=== PATIENT | male | born 1930 | race Caucasian/White ===

== ENCOUNTER 2017-03-03 11:22 | Emergency (ER) | payer MEDICARE, BC ==
[2017-03-03 11:31] VITALS: BP 152/83
--- NOTE | 2017-03-03 12:15 | EDM.PDOC ---
ED HPI GENERAL MEDICAL PROBLEM - General Chief Complaint: Gastrointestinal Problem Stated Complaint: CONSTIPATION Time Seen by Provider: 03/03/17 11:42 Source of Information: Reports: Patient, Significant Other History Limitations: Reports: Physical Impairment (patient has parkinsons) - History of Present Illness INITIAL COMMENTS - FREE TEXT/NARRATIVE: 86-year-old male presents for evaluation treatment of constipation. Patient reports that he has not had a bowel movement in the last 4 days. He reports colicky abdominal cramping on the left side, present for the last 2 days. He reports that he had a small bowel movement yesterday but has otherwise not had a large bowel movement last 4 days. He reports the urge to defecate. He also reports bloating and some nausea. Patient denies any vomiting, melena, hematochezia, dizziness, lightheadedness, dysuria or hematuria. Patient states he has not been passing much gas. Patient takes MiraLAX periodically but has not daily. No previous surgeries to his abdomen. Patient has Parkinson's and frequent struggles with constipation. - Related Data Allergies Allergy/AdvReac Type Severity Reaction Status Date / Time No Known Allergies Allergy Verified 03/03/17 11:31 Home Meds: Home Meds Carbidopa/Levodopa [Sinemet 25-100 mg] 2 tab PO TIDM 03/03/17 [History] Levothyroxine 25 mcg PO ACBREAKFAST 03/03/17 [History] Magnesium Citrate [Citroma] 296 ml PO ASDIRECTED #1 bottle 03/03/17 [Rx] Simvastatin [Zocor] 20 mg PO BEDTIME 03/03/17 [History] Past Medical History Cardiovascular History: Reports: High Cholesterol Gastrointestinal History: Reports: Chronic Constipation Neurological History: Reports: Parkinson's Endocrine/Metabolic History: Reports: Hypothyroidism Social & Family History - Tobacco Use Smoking Status *Q: Never Smoker Second Hand Smoke Exposure: No - Caffeine Use Caffeine Use: Reports: Coffee - Recreational Drug Use Recreational Drug Use: No ED ROS GENERAL - Review of Systems Review Of Systems: See Below Cardiovascular: Denies: Lightheadedness GI/Abdominal: Reports: Abdominal Pain (left sided abd cramping), Constipation, Nausea. Denies: Hematochezia, Melena, Vomiting : Reports: No Symptoms. Denies: Dysuria Neurological: Denies: Dizziness ED EXAM, GI/ABD - Physical Exam Exam: See Below Exam Limited By: Physical Impairment (patient has parkinsons) General Appearance: Alert, WD/WN, No Apparent Distress Respiratory/Chest: No Respiratory Distress, Lungs Clear, Normal Breath Sounds Cardiovascular: Normal Peripheral Pulses, Regular Rate, Rhythm, No Murmur GI/Abdominal: Normal Bowel Sounds, Soft, Non-Tender Extremities: Normal Inspection, Limited Range of Motion (ridgid) Neurological: Alert, Oriented, Slow to Respond, Abnormal Gait (shuffling) Psychiatric: Normal Affect, Normal Mood Skin Exam: Warm, Dry, Normal Color Course - Vital Signs Last Recorded V/S: Last Vital Signs Temp 36.4 C 03/03/17 11:29 Pulse 60 03/03/17 11:29 Resp 19 03/03/17 11:29 BP 152/83 H 03/03/17 11:29 Pulse Ox 98 03/03/17 11:29 - Orders/Labs/Meds Orders: Active Orders 24 hr Category Date Time Status Enema [RC] ASDIRECTED Care 03/03/17 12:54 Active Enema [RC] ASDIRECTED Care 03/03/17 15:07 Active - Radiology Interpretation Free Text/Narrative:: flat and upright abdominal xray shows extensive constipation to the left side. No air fluid lines present. Reviewed by myself and Dr. Price. - Re-Assessments/Exams Free Text/Narrative Re-Assessment/Exam: 03/03/17 12:59 I reviewed the xray results with the patient and his . Will try a mineral oil enema for the constipation. 03/03/17 15:00 Patient was not able to hold the enema for long. No results with the fleets. Will try a soap suds enema. 03/03/17 16:02 Patient has good results with the soap suds enema. Continues to have some abdominal discomfort but has improved. Will discharge home at this time. Discharge instructions as documented. Departure - Departure Time of Disposition: 16:03 Disposition: Home, Self-Care 01 Condition: Good Clinical Impression: Constipation - Discharge Information Prescriptions: Magnesium Citrate [Citroma] 296 ml PO ASDIRECTED #1 bottle Instructions: Constipation, Adult Referrals: PCP,None [Primary Care Provider] - Forms: ED Department Discharge Additional Instructions: If you do not have another large bowel movement today, drink 1/2 the bottle of mag citrate tomorrow. Drink this over an hour in the morning. [id number] Tylenol or Motrin as needed for cramping pain. make sure you are drinking plenty of fluids. I recommend you take MiraLAX daily to prevent constipation. Follow-up with your primary care provider as needed. Please return to the ER if your symptoms change or worsen. - My Orders Last 24 Hours: My Active Orders 03/03/17 12:54 Enema [RC] ASDIRECTED 03/03/17 15:07 Enema [RC] ASDIRECTED - Assessment/Plan Last 24 Hours: My Active Orders 03/03/17 12:54 Enema [RC] ASDIRECTED 03/03/17 15:07 Enema [RC] ASDIRECTED
--- NOTE | 2017-03-04 09:05 | CR ---
Abdomen: Supine and upright views of the abdomen were obtained. Comparison: No previous abdominal imaging. Scattered gas is noted within colon and small bowel. Scattered stool is noted within the colon. Mild degenerative endplate spurring is noted within the spine. Calcifications are seen within the pelvis compatible with phleboliths and arterial calcification. No discrete soft tissue abnormality is appreciated. No free air is seen. Large hiatal hernia is noted. Impression: 1. Large hiatal hernia. Other incidental findings. Diagnostic code #2
== END 2017-03-03 16:17 | disposition home or self-care (01) ==
LOC: JD.ED 11:22
DX: K59.00 Constipation, unspecified (principal); E03.9 Hypothyroidism, unspecified; E78.00 Pure hypercholesterolemia, unspecified; Z79.899 Other long term (current) drug therapy
CPT/HCPCS: 74020; 74020-26; 99282; 99284

== ENCOUNTER 2017-06-16 13:10 | Emergency (ER) | payer MEDICARE, BC ==
[2017-06-16 13:23] VITALS: BP 123/74
--- NOTE | 2017-06-16 16:03 | EDM.PDOC ---
ED HPI GENERAL MEDICAL PROBLEM - General Chief Complaint: Gastrointestinal Problem Stated Complaint: INTESTINAL BLOCKAGE Time Seen by Provider: 06/16/17 13:16 Source of Information: Reports: Patient, Family, RN Notes Reviewed (bowels) - History of Present Illness INITIAL COMMENTS - FREE TEXT/NARRATIVE: 87-year-old male comes in with constipation difficulty. He has not had a BM for several days. He does have history of chronic constipation. Somewhat advanced Parkinson's disease so does not ambulate or move around a whole lot. His states that she works hard encouraging fluids, high-fiber diet a lot of fruit and vegetables but still having a lot of difficulty. He feels like he needs to have a BM today but unable to get anything out other than some liquid around what may be impacted stool in the rectum. - Related Data Allergies Allergy/AdvReac Type Severity Reaction Status Date / Time No Known Allergies Allergy Verified 06/16/17 13:23 Home Meds: Home Meds Carbidopa/Levodopa [Sinemet 25-100 mg] 2 tab PO TIDM 03/03/17 [History] Levothyroxine 25 mcg PO ACBREAKFAST 03/03/17 [History] Magnesium Citrate [Citroma] 296 ml PO ASDIRECTED #1 bottle 03/03/17 [Rx] Simvastatin [Zocor] 20 mg PO BEDTIME 03/03/17 [History] Past Medical History Cardiovascular History: Reports: High Cholesterol Gastrointestinal History: Reports: Chronic Constipation Neurological History: Reports: Parkinson's Endocrine/Metabolic History: Reports: Hypothyroidism Social & Family History - Tobacco Use Smoking Status *Q: Never Smoker Second Hand Smoke Exposure: No - Caffeine Use Caffeine Use: Reports: Coffee - Recreational Drug Use Recreational Drug Use: No ED ROS GENERAL - Review of Systems Review Of Systems: See Below Constitutional: Denies: Fever, Chills, Diaphoresis HEENT: Reports: No Symptoms Respiratory: Denies: Shortness of Breath Cardiovascular: Denies: Chest Pain GI/Abdominal: Reports: Constipation. Denies: Abdominal Pain, Nausea, Vomiting Skin: Reports: No Symptoms Neurological: Reports: Weakness (chronic secondary to Parkinson's) ED EXAM, GI/ABD - Physical Exam Exam: See Below General Appearance: Alert, No Apparent Distress Throat/Mouth: Normal Inspection, Normal Oropharynx Head: Atraumatic Neck: Normal Inspection, Supple Respiratory/Chest: No Respiratory Distress, Lungs Clear Cardiovascular: Regular Rate, Rhythm GI/Abdominal Exam: Soft, Non-Tender Rectal (Males) Exam: Fecal Impaction (there is a fair amount of firm stool higher up in the rectum with evidence of leak each, soiled underwear and pad.), Other Extremities: Normal Inspection. No: Pedal Edema, Leg Pain Course - Vital Signs Last Recorded V/S: Last Vital Signs Temp 98.7 F 06/16/17 13:19 Pulse 78 06/16/17 13:19 Resp 16 06/16/17 13:19 BP 123/74 06/16/17 13:19 Pulse Ox 96 06/16/17 13:19 - Re-Assessments/Exams Free Text/Narrative Re-Assessment/Exam: 06/16/17 16:23 his nurse manually removed a large amount of stool and than after enema he was able to have further large BM. Feels tremendously better. Departure - Departure Time of Disposition: 16:01 Disposition: Home, Self-Care 01 Condition: Fair Clinical Impression: Constipation Qualifiers: Constipation type: slow transit constipation Qualified Code(s): K59.01 - Slow transit constipation - Discharge Information Instructions: Constipation, Adult Referrals: PCP,Not In Area [Primary Care Provider] - Forms: ED Department Discharge Additional Instructions: continue to encourage fluids, continue with healthy high-fiber diet, continue MiraLAX once or twice daily, prunes or prune juice once or twice daily, Colace or Mariaa-Colace stool softener once or twice daily, fiber pill or Metamucil once daily as needed, consider dulcolax suppository or biscodyl stimulant laxative if not having a BM for 2 or 3 days and all of the above not working as expected. Follow-up clinic as needed, return to ED as needed if symptoms worsening in any way.
== END 2017-06-16 16:10 | disposition home or self-care (01) ==
LOC: JD.ED 13:10
DX: K59.01 Slow transit constipation (principal); E78.00 Pure hypercholesterolemia, unspecified; E03.9 Hypothyroidism, unspecified
CPT/HCPCS: 99283